=== PATIENT | male | born 1995 | race Two or more races ===

== ENCOUNTER → 2020-05-08 | Outpatient (CLI) | payer OTHER | END | disposition home or self-care (01) | LOC: OFIC 805 11:30 | PROVIDERS: ATTEND Otolaryngology | DX: J34.2 Deviated nasal septum (principal); H93.13 Tinnitus, bilateral; H90.3 Sensorineural hearing loss, bilateral; H61.23 Impacted cerumen, bilateral ==

== ENCOUNTER 2020-06-06 15:02 | Outpatient (CLI) | payer OTHER | END 2020-06-06 16:20 | disposition home or self-care (01) | LOC: OFIC 805 15:02 | PROVIDERS: ATTEND Otolaryngology | DX: J34.2 Deviated nasal septum (principal); H93.13 Tinnitus, bilateral; H91.8X3 Other specified hearing loss, bilateral ==

== ENCOUNTER → 2020-06-25 | Outpatient (CLI) | payer OTHER | END | disposition home or self-care (01) | LOC: OFIC 805 06-20 14:00 | PROVIDERS: ATTEND Otolaryngology | DX: J30.89 Other allergic rhinitis (principal); J34.2 Deviated nasal septum; J34.89 Other specified disorders of nose and nasal sinuses ==

== ENCOUNTER 2020-08-13 10:27 | Outpatient (CLI) | payer OTHER | END 2020-08-13 12:18 | disposition home or self-care (01) | LOC: OFIC 805 10:27 | PROVIDERS: ATTEND Otolaryngology | DX: J32.0 Chronic maxillary sinusitis (principal) ==

== ENCOUNTER 2020-10-31 11:13 | Outpatient (CLI) | payer OTHER | END 2020-10-31 11:49 | disposition home or self-care (01) | LOC: OFIC 805 11:13 | PROVIDERS: ATTEND Otolaryngology | DX: J34.2 Deviated nasal septum (principal); J34.3 Hypertrophy of nasal turbinates ==

== ENCOUNTER 2021-05-27 09:24 | Emergency (ER) | payer OTHER ==
[~2021-05-27] VITALS: Ht 170.2 cm; Wt 70.3 kg
[2021-05-27] MEDS ORDERED: PRILOSEC OTC20 MG PO (09:51)
== END 2021-05-27 13:11 | disposition home or self-care (01) ==
LOC: ER
DX: B34.9 Viral infection, unspecified (principal); Z20.822 Contact with and (suspected) exposure to COVID-19